=== PATIENT | female | born 1950 ===

== ENCOUNTER 2022-11-11 14:04 | Inpatient (IN) | payer OTHER ==
[~2022-11-11] VITALS: Ht 152.4 cm; Wt 92.5 kg
[2022-11-11] MEDS ORDERED: COZAAR100 MG PO (14:51)
[2022-11-11] MEDS ORDERED: GLIPIZIDE XL10 MG PO (14:52)
[2022-11-11] MEDS ORDERED: TYLENOL ARTHRI650 MG PO (14:52)
[2022-11-11] MEDS ORDERED: NORVASC5 MG PO (14:52)
[2022-11-11] MEDS ORDERED: METFORMIN HCL500 M3 PO (14:52)
[2022-11-11] MEDS ORDERED: LEVOTHYROXINE25 MCG PO (14:53)
[2022-11-11] MEDS ORDERED: HORIZANT300 MG PO (14:53)
== END 2022-11-19 18:44 | disposition home or self-care (01) | DRG 328 ==
LOC: ICU 11-12 05:33 → O/R 11-12 05:33 → SURG 11-12 08:00 → ICU 11-13 02:55
PROVIDERS: Internal Medicine; ADMIT Surgery; ATTEND Surgery
PROC: 0DB80ZZ Excision of Small Intestine, Open Approach (ICD-10-PCS; 2022-11-12)
PROC: 0DT60ZZ Resection of Stomach, Open Approach (ICD-10-PCS; principal; 2022-11-12 08:00)
PROC: 02HV33Z Insertion of Infusion Device into Superior Vena Cava, Percutaneous Approach (ICD-10-PCS; 2022-11-16)
DX: C16.1 Malignant neoplasm of fundus of stomach (principal); R59.0 Localized enlarged lymph nodes; Z20.822 Contact with and (suspected) exposure to COVID-19; I10 Essential (primary) hypertension